=== PATIENT | male | born 1980 | race Caucasian/White ===

== ENCOUNTER 2019-03-10 01:03 | Emergency (ER) | payer MEDICAID ==
[~2019-03-10] VITALS: Ht 177.8 cm; Wt 104.8 kg
[~2019-03-10 01:03] MED LIST: DOCU-28 PO; FOLI1TAB16 PO; LACT10SO32 PO; LEVO50TA PO; MIDO2.5T14 PO; MILK200C4 PO; ONDA4TAB6 PO; SPIR100T PO; THI100T PO
[2019-03-10 01:09] VITALS: BP 147/90
[2019-03-10] MEDS ORDERED: normal saline 1000ML IV soln IVB ONE (01:30)
[2019-03-10 01:58] LABS: BASOPHILS # (AUTO) 0.1 X10'3 (0-0.2); BASOPHILS % (AUTO) 1.2 % (0-1); EOSINOPHILS % (AUTO) 0.2 % (0-6); HEMATOCRIT 47.5 % (42.0-52.0); LYMPHOCYTES # (AUTO) 1.9 X10'3 (1.1-4.8); LYMPHOCYTES % (AUTO) 23.7 % (21-51); MEAN CORPUSCULAR HEMOGLOBIN 29.2 PG (27.0-31.0); MEAN CORPUSCULAR HGB CONC 33.6 g/dL (33.0-36.5); MEAN CORPUSCULAR VOLUME 86.9 FL (78-98); MEAN PLATELET VOLUME 8.5 FL (7.4-10.4); MONOCYTES # (AUTO) 0.9 X10'3 (0-0.9); MONOCYTES % (AUTO) 11.5 % (2-12); NEUTROPHILS # (AUTO) 5.2 X10'3 (1.8-7.7); NEUTROPHILS % (AUTO) 63.4 % (42-75); PLATELET COUNT 159 X10'3 (140-440); RED BLOOD COUNT 5.46 X10'6 (4.70-6.10); WHITE BLOOD COUNT 8.2 X10'3 (4.5-11.0)
[2019-03-10 02:22] LABS: ALANINE AMINOTRANSFERASE 374 U/L (12-78); ALBUMIN 3.9 G/DL (3.4-5.0); ALBUMIN/GLOBULIN RATIO 0.9 (1.1-1.5); ALKALINE PHOSPHATASE 288 IU/L (46-116); ANION GAP 10 (8-16); ASPARTATE AMINO TRANSFERASE 836 U/L (10-37); BLOOD UREA NITROGEN 7 MG/DL (7-18); BUN/CREATININE RATIO 7.6 (5.4-32.0); CALCIUM 9.2 MG/DL (8.5-10.1); CHLORIDE 100 MMOL/L (99-107); CREATININE 0.92 MG/DL (0.60-1.10); ETHANOL 0.204 GM/DL (0.0-0.010); GLUCOSE 111 MG/DL (70-104); POTASSIUM 3.2 MMOL/L (3.5-5.1); SODIUM 138 MMOL/L (135-145); TOTAL CARBON DIOXIDE 27.6 MMOL/L (24-32); TOTAL PROTEIN 8.2 G/DL (6.4-8.2); eGFR > 90 ML/MIN
[2019-03-10 02:40] LABS: ANISOCYTOSIS 2+; PLATELET ESTIMATE NORMAL
== END 2019-03-10 03:03 | disposition home or self-care (01) ==
LOC: ER 01:04
DX: F10.239 Alcohol dependence with withdrawal, unspecified (principal); R51 Headache; F41.9 Anxiety disorder, unspecified; F32.9 Major depressive disorder, single episode, unspecified; Z86.14 Personal history of Methicillin resistant Staphylococcus aureus infection; F17.200 Nicotine dependence, unspecified, uncomplicated; Z79.899 Other long term (current) drug therapy; Z98.890 Other specified postprocedural states; Y90.9 Presence of alcohol in blood, level not specified
CPT/HCPCS: 36415; 71045; 80053; 80320; 82140; 82948; 85025; 99284

== ENCOUNTER 2019-04-18 11:05 | Emergency (ER) | payer MEDICARE, MEDICAID ==
[~2019-04-18] VITALS: Ht 177.8 cm; Wt 118.2 kg
[2019-04-18 11:50] LABS: BASOPHILS # (AUTO) 0.1 X10'3 (0-0.2); BASOPHILS % (AUTO) 0.5 % (0-1); EOSINOPHILS % (AUTO) 0.3 % (0-6); HEMATOCRIT 41.5 % (42.0-52.0); HEMOGLOBIN 14.4 g/dl (14.0-17.9); LYMPHOCYTES # (AUTO) 1.8 X10'3 (1.1-4.8); LYMPHOCYTES % (AUTO) 14.7 % (21-51); MEAN CORPUSCULAR HEMOGLOBIN 30.2 PG (27.0-31.0); MEAN CORPUSCULAR HGB CONC 34.7 g/dL (33.0-36.5); MEAN CORPUSCULAR VOLUME 86.9 FL (78-98); MEAN PLATELET VOLUME 8.5 FL (7.4-10.4); MONOCYTES % (AUTO) 8.7 % (2-12); NEUTROPHILS # (AUTO) 9.1 X10'3 (1.8-7.7); NEUTROPHILS % (AUTO) 75.8 % (42-75); PLATELET COUNT 118 X10'3 (140-440); RED BLOOD COUNT 4.77 X10'6 (4.70-6.10); RED CELL DISTRIBUTION WIDTH 19.4 % (11.5-14.5); WHITE BLOOD COUNT 11.9 X10'3 (4.5-11.0)
[2019-04-18 11:57] LABS: PARTIAL THROMBOPLASTIN TIME 30 SECONDS (22-32)
[2019-04-18 11:58] LABS: ALANINE AMINOTRANSFERASE 176 U/L (12-78); ALBUMIN 3.6 G/DL (3.4-5.0); ALKALINE PHOSPHATASE 222 IU/L (46-116); ANION GAP 14 (8-16); ASPARTATE AMINO TRANSFERASE 323 U/L (10-37); BILIRUBIN,TOTAL 4.4 MG/DL (0.1-1.0); BLOOD UREA NITROGEN 11 MG/DL (7-18); BUN/CREATININE RATIO 6.6 (5.4-32.0); CALCIUM 8.3 MG/DL (8.5-10.1); CHLORIDE 90 MMOL/L (99-107); CREATININE 1.66 MG/DL (0.60-1.10); GLUCOSE 102 MG/DL (70-104); SODIUM 129 MMOL/L (135-145); eGFR 46 ML/MIN
[2019-04-18 11:59] LABS: ALBUMIN/GLOBULIN RATIO 0.8 (1.1-1.5)
[2019-04-18 12:00] LABS: POTASSIUM 2.9 MMOL/L (3.5-5.1)
[2019-04-18] MEDS ORDERED: normal saline 1000ML IV soln IVB ONE ×2 (12:40)
[2019-04-18 12:44] LABS: ANISOCYTOSIS 2+; LARGE PLATELETS FEW; PLATELET ESTIMATE DECREASED; POLYCHROMASIA 1+
[2019-04-18 13:01] LABS: ETHANOL < 0.010 GM/DL (0.0-0.010)
[2019-04-18 13:51] LABS: URINE AMPHETAMINE SCREEN POSITIVE (Neg); URINE BARBITUATE SCREEN NEGATIVE (Neg); URINE BENZODIAZEPINES SCREEN POSITIVE (Neg); URINE CANNABINOID SCREEN NEGATIVE (Neg); URINE COCAINE SCREEN NEGATIVE (Neg); URINE METHADONE SCREEN NEGATIVE (Neg); URINE OPIATE SCREEN NEGATIVE (Neg); URINE PHENCYCLIDINE SCREEN NEGATIVE (Neg)
[2019-04-18] MEDS ORDERED: lactulose 20gm/30ml cup PO ONE (14:15)
[2019-04-18] MEDS: potassium Cl 10 mEq/100mL bag IV SCH ×2 (14:36→15:38)
[2019-04-18 17:27] VITALS: BP 121/67
== END 2019-04-18 17:29 | disposition home or self-care (01) ==
LOC: ER 11:05
DX: K70.40 Alcoholic hepatic failure without coma (principal); R11.10 Vomiting, unspecified; K70.31 Alcoholic cirrhosis of liver with ascites; F19.10 Other psychoactive substance abuse, uncomplicated; F41.9 Anxiety disorder, unspecified; F32.9 Major depressive disorder, single episode, unspecified; Z86.69 Personal history of other diseases of the nervous system and sense organs; Z98.890 Other specified postprocedural states; Z86.14 Personal history of Methicillin resistant Staphylococcus aureus infection; Z79.899 Other long term (current) drug therapy
CPT/HCPCS: 36415; 70450; 71045; 80053; 80305; 80320; 84484; 85025; 85610; 85730; 93005; 96360; 96361; 99284; J3480; J7030; J7040